=== PATIENT | female | born 1995 | race Caucasian/White ===

== ENCOUNTER 2019-12-09 11:48 | Inpatient (IN) | payer OTHER ==
[~2019-12-09] VITALS: Ht 165.1 cm; Wt 95.5 kg
[~2019-12-09 11:48] MED LIST: MOTRIN 800800 MG/TAB PO; PERCOCET 325 MG1 TA2 PO
[2019-12-12] VITALS (34 sets, daily range): BP systolic 95–118; BP diastolic 55–77; PULSE 64–95; TEMP 97.7–99.8
[2019-12-12] MEDS ORDERED: PRENATAL (06:49)
--- NOTE | 2019-12-12 07:10 | NUR ---
0710-G2L1 40.1 WEEK GBS (-) Patient of Dr. Botello's ambulatory to LR 6 for scheduled induction of labor. Patient Denies contractions or leaking of fluid or vaginal bleeding. Reports good movement. Consents reviewed and signed. IV to Right forearm by ZOYA Palomo, blood collected and sent to lab per orders and LR infusing, see EMAR. Assessment complete. 0800-SVE difficult to locate cervix due to maternal discomfort with SVE. RN does not continue with check. 0806-Pitocin per MD order and protocol at 2mu/min see EMAR. 0850-Dr. Botello on unit. 0852-SVE by MD. Difficult check placed patient on bedpan to tilt cervix midposition. AROM by MD clear fluid. Cervix 3/80/0 per MD. Patient requests epidural. 0855-Salvador,MINE notified of request. IVF bolus started.
[2019-12-12 08:05] LABS: BASO % 0.2 % (0.0-2.0); EOS % 0.4 % (0-4.0); GRAN # 6.3 (1.4-6.5); GRAN % 66.3 % (42.2-75.2); HEMATOCRIT 31.7 % (37.0-47.0); HEMOGLOBIN 10.4 g/dl (12.5-16.0); LYMPH # 2.6 (1.2-3.4); LYMPH % 27.1 % (20.0-51.0); MEAN CELL VOLUME 83 fl (80.0-100.0); MEAN CORPUSCULAR HEMOGLOBIN 27 pg (27.0-31.0); MEAN CORPUSCULAR HGB CONC 33 g/dl (33.0-37.0); MEAN PLATELET VOLUME 11.4 fl (7.4-10.4); MONO # 0.5 (0.1-0.6); MONO % 5.6 % (1.7-9.3); PLATELET COUNT 208 K/mm3 (130-400); RED BLOOD COUNT 3.81 M/mm3 (4.10-5.30); REDCELL DISTRIBUTION WIDTH-CV 14.3 % (11.5-14.5)
--- NOTE | 2019-12-12 09:25 | NUR ---
0925-Patient sitting upright on bedside for epidural placement. MINE Franco to room. Reviews plan of care and history with patient. 0935-MINE Franco doses patient with epidural via test dose, tolerates well. VSS. See Anesthesia record. FHR difficult to traced due to maternal positioning for epidural. Repositioned WL. Updated on plan of care and safety.
--- NOTE | 2019-12-12 10:20 | NUR ---
1020-Anderson placed to DD, clear yellow urine return. Nancie care provided. SVE by this RN , Repositioned WL. 1125-Peanut ball placed with patient WL>
--- NOTE | 2019-12-12 12:15 | NUR ---
1215-Dr. Botello on unit. SVE by , . Patient repositioned WR with peanut ball.
--- NOTE | 2019-12-12 13:27 | NUR ---
1327-Variable decel in FHR down to 60BPM with spontaneous return to baseline. 1330-SVE by this RN /1 Updated MD and requested for delivery. 1345-Dr. Botello to room. 1346-Patient begins pushing with Dr. Botello at bedside. Moves vertex well. 1351-Spontaneous delivery of head, Loose Nuchal x1 reduced by MD. Patient pushes out body immediately after. MD clamps cord x2 and FOB cuts cord. Viable male infant placed on mothers abdomen. Care of infant assumed by ZOYA Bertrand Apgars 9. 1354-Spontaneous delivery of intact placenta by MD. Fundal massage firm. Lochia moderate and WNL. EBL 400ml. Pitocin bolus started per MD orders and protocol. 2nd degree perineal and periclitoral lacerations repaired by MD. Nancie care provided. Patient updated on safety and plan of care.
[2019-12-12] MEDS ORDERED: MOTRIN 800800 MG/TAB PO (15:04)
--- NOTE | 2019-12-12 17:00 | NUR ---
1700-Patient RLE "feels a little weak." Easily holds above bed. Transferred to Wheelchair easily with assist x 1. To bathroom, voids clear yellow urine, pericare assisted. Taken via wheelchair to room 214 and oriented. Denies needs.
[2019-12-13] VITALS: BP 102/60; PULSE 89; TEMP 98.3
[2019-12-13 04:15] VITALS: BP 108/74; PULSE 76; TEMP 98
[2019-12-13 08:50] VITALS: BP 122/68; PULSE 71; TEMP 97.9
--- NOTE | 2019-12-13 13:40 | NUR ---
Job Hand offered congrats to patient and spouse.
== END 2019-12-13 16:15 | disposition home or self-care (01) | DRG 807 ==
LOC: LDR → OB 12-12 07:09 → LDR 12-12 07:09 → OB 12-12 17:00
PROVIDERS: ADMIT Obstetrics & Gynecology
PROC: 10E0XZZ Delivery of Products of Conception, External Approach (ICD-10-PCS; principal; 2019-12-12)
PROC: 0KQM0ZZ Repair Perineum Muscle, Open Approach (ICD-10-PCS; 2019-12-12)
PROC: 10907ZC Drainage of Amniotic Fluid, Therapeutic from Products of Conception, Via Natural or Artificial Opening (ICD-10-PCS; 2019-12-12)
PROC: 3E033VJ Introduction of Other Hormone into Peripheral Vein, Percutaneous Approach (ICD-10-PCS; 2019-12-12)
DX: O99.02 Anemia complicating childbirth (principal); Z37.0 Single live birth; D64.9 Anemia, unspecified; O69.1XX0 Labor and delivery complicated by cord around neck, with compression, not applicable or unspecified; O70.1 Second degree perineal laceration during delivery; Z3A.40 40 weeks gestation of pregnancy
CPT/HCPCS: J2590; J7120